=== PATIENT | female | born 1965 | race African-American/Black ===

== ENCOUNTER 2018-06-10 12:01 | Inpatient (IN) | payer MEDICAID, OTHER ==
[~2018-06-10] VITALS: Ht 162.6 cm; Wt 112.2 kg
[2018-06-10] VITALS (15 sets, daily range): BP systolic 72–194; BP diastolic 29–102
[2018-06-10] MEDS ORDERED: NICARDIPINE 50 MG in SODIUM CHLORIDE 0.9% 230 ML IV STA (12:53)
[2018-06-10 12:59] LABS: BASOPHILS % 1.4 % (0.0-2.0); EOSINOPHILS % 0.4 % (0.0-5.0); HEMATOCRIT. 40.7 % (36.0-48.0); HEMOGLOBIN. 13.9 g/dL (12.0-16.0); LYMPHOCYTES % 18.1 % (20.0-50.0); MEAN CORPUSCULAR HEMOGLOBIN 28.1 pg (28.0-32.0); MEAN CORPUSCULAR VOLUME 82.2 fL (81.0-99.0); MEAN PLATELET VOLUME 8.5 fl (7.4-10.4); MONOCYTES % 3.7 % (2.0-8.0); NEUTROPHILS % 76.4 % (40.0-76.0); PLATELET 396 x1000/uL (130-400); RED BLOOD CELL COUNT 4.95 mill/uL (4.2-5.4); RED CELL DISTRIBUTION WIDTH 15.4 % (11.6-14.6)
[2018-06-10] MEDS ORDERED: LABETALOL 5MG/ML SYR 20 MG/4 ML SYRINGE IV ONE (13:00)
[2018-06-10 13:07] LABS: CHLORIDE 106 mEq/L (98-107); INR 1.1; PARTIAL THROMBOPLASTIN TIME 24.1 sec (23.4-31.0); PROTHROMBIN TIME 10.6 sec (9.1-11.1)
[2018-06-10] MEDS ORDERED: LEVETIRACETAM 500MG PREMIX 100 ML IV ONE (13:15)
[2018-06-10] MEDS ORDERED: NICARDIPINE 40MG/200ML PREMIX 200 ML IV SCH (13:15)
[2018-06-10] MEDS ORDERED: POTASSIUM CHLORIDE 20MEQ TABLET SR PO ONE (14:45)
[2018-06-10] MEDS ORDERED: CLONIDINE 0.1MG TABLET PO PRN ×2 (16:00→22:00)
[2018-06-10] MEDS ORDERED: LORAZEPAM 2MG/ML CPJ IV PRN (22:00)
[2018-06-10] MEDS ORDERED: POTASSIUM CHLORIDE 20MEQ TABLET SR PO NR (22:00)
[2018-06-10] MEDS ORDERED: IPRATROPIUM/ALBUTEROL 0.5-3(2.5)MG/3ML NEB INH PRN (22:00)
[2018-06-10] MEDS ORDERED: ONDANSETRON HCL 4MG/2ML VIAL IV PRN (22:00)
[2018-06-10] MEDS ORDERED: ACETAMINOPHEN 325MG TABLET PO PRN (22:00)
[2018-06-10] MEDS ORDERED: DOCUSATE SODIUM 100MG CAPSULE PO PRN (22:00)
[2018-06-10] MEDS ORDERED: MAGNESIUM/ALUMINUM HYDROXIDE/SIMETHICONE 30ML UDC PO PRN (22:00)
[2018-06-10] MEDS ORDERED: HYDROCODONE/ACETAMINOPHEN 5/325MG TABLET PO PRN (22:00)
[2018-06-10] MEDS: NIFEDIPINE XL 60MG TAB PO SCH (23:02)
[2018-06-11] VITALS (37 sets, daily range): BP systolic 114–170; BP diastolic 48–128
[2018-06-11 00:07] LABS: CREATINE KINASE MB FRACTION 1.5 ng/mL (0.5-3.6)
[2018-06-11 06:04] LABS: BASOPHILS % 1.3 % (0.0-2.0); EOSINOPHILS % 1.8 % (0.0-5.0); HEMATOCRIT. 38.2 % (36.0-48.0); HEMOGLOBIN. 12.9 g/dL (12.0-16.0); LYMPHOCYTES % 24.1 % (20.0-50.0); MEAN CORPUSCULAR HEMOGLOBIN 27.9 pg (28.0-32.0); MEAN CORPUSCULAR VOLUME 82.4 fL (81.0-99.0); MEAN PLATELET VOLUME 8.7 fl (7.4-10.4); MONOCYTES % 4.7 % (2.0-8.0); NEUTROPHILS % 68.1 % (40.0-76.0); PLATELET 356 x1000/uL (130-400); RED BLOOD CELL COUNT 4.63 mill/uL (4.2-5.4); RED CELL DISTRIBUTION WIDTH 15.2 % (11.6-14.6)
[2018-06-11 06:18] LABS: CHLORIDE 107 mEq/L (98-107)
[2018-06-11 06:32] LABS: LDL CHOLESTEROL 89 mg/dL (5-100)
[2018-06-11 06:33] LABS: CREATINE KINASE 486 IU/L (26-192); HDL CHOLESTEROL 47 mg/dL (40-59)
[2018-06-11 06:35] LABS: CREATINE KINASE MB FRACTION 1.4 ng/mL (0.5-3.6)
[2018-06-11] MEDS: NIFEDIPINE XL 60MG TAB PO SCH ×2 (10:28→20:04)
[2018-06-11] MEDS: LEVETIRACETAM 500MG/5ML CUP PO SCH ×2 (10:29→20:04)
[2018-06-11] MEDS: ASPIRIN 81MG TABLET PO SCH (10:29)
[2018-06-11] MEDS: ENOXAPARIN 30MG/0.3ML SYR SUBCUT SCH ×2 (10:33→20:04)
[2018-06-11] MEDS: METFORMIN HCL 500MG TABLET PO SCH (17:48)
[2018-06-11] MEDS: CLONIDINE 0.2MG TABLET PO SCH ×2 (18:09→21:17)
[2018-06-11 20:35] LABS: ETHANOL BLOOD < 10 mg/dL
[2018-06-11 20:40] LABS: AMMONIA 49 uMol/L (<32)
[2018-06-11 20:41] LABS: T4 FREE 1.03 ng/dL (0.76-1.46)
[2018-06-11 20:54] LABS: FOLIC ACID (FOLATE) SERUM 10.2 ng/mL (>5.38)
[2018-06-11 21:01] LABS: CLARITY URINE CLOUDY (CLEAR); COLOR URINE YELLOW (YELLOW); KETONES URINE NEGATIVE (NEGATIVE); LEUKOCYTE ESTERASE URINE TRACE (NEGATIVE); NITRITE URINE NEGATIVE (NEGATIVE); OCCULT BLOOD URINE NEGATIVE (NEGATIVE); PROTEIN URINE NEGATIVE (NEGATIVE)
[2018-06-11 21:15] LABS: *AMPHETAMINES SCREEN URINE NEGATIVE (NEGATIVE); *BARBITURATES SCREEN URINE NEGATIVE (NEGATIVE); *BENZODIAZEPINES SCREEN URINE NEGATIVE (NEGATIVE); *COCAINE SCREEN URINE NEGATIVE (NEGATIVE)
[2018-06-11 21:16] LABS: CANNABINOID URINE SCREEN NEGATIVE (NEGATIVE); METHADONE URINE SCREEN NEGATIVE (NEGATIVE); OPIATES URINE SCREEN NEGATIVE (NEGATIVE); PHENCYCLIDINE URINE SCREEN NEGATIVE (NEGATIVE)
[2018-06-11] MEDS ORDERED: DEXTROSE 50% WATER 50ML SYRINGE IV PRN (23:30)
[2018-06-12] VITALS: BP 120/79
[2018-06-12] MEDS: LACTULOSE 20G/30ML UDC PO SCH ×3 (00:19→17:06)
[2018-06-12 04:00] VITALS: BP 135/78
[2018-06-12] MEDS: CLONIDINE 0.2MG TABLET PO SCH ×2 (05:44→21:19)
[2018-06-12] MEDS: BLOOD SUGAR DIAGNOSTIC STRIP TEST SCH ×4 (05:45→21:29)
[2018-06-12] MEDS: INSULIN LISPRO 100 UNITS/ML SUBCUT SCH ×4 (06:17→21:29)
[2018-06-12] MEDS: METFORMIN HCL 500MG TABLET PO SCH ×2 (07:48→17:06)
[2018-06-12 08:00] VITALS: BP 98/62
[2018-06-12 08:23] LABS: BASOPHILS % 1.5 % (0.0-2.0); EOSINOPHILS % 4.1 % (0.0-5.0); HEMATOCRIT. 38.7 % (36.0-48.0); LYMPHOCYTES % 27.1 % (20.0-50.0); MEAN CORPUSCULAR VOLUME 83.3 fL (81.0-99.0); MEAN PLATELET VOLUME 8.8 fl (7.4-10.4); MONOCYTES % 4.8 % (2.0-8.0); NEUTROPHILS % 62.5 % (40.0-76.0); PLATELET 357 x1000/uL (130-400); RED BLOOD CELL COUNT 4.65 mill/uL (4.2-5.4); RED CELL DISTRIBUTION WIDTH 15.2 % (11.6-14.6)
[2018-06-12 08:39] LABS: CHLORIDE 105 mEq/L (98-107)
[2018-06-12] MEDS: NIFEDIPINE XL 60MG TAB PO SCH ×2 (09:00→21:18)
[2018-06-12] MEDS: LEVETIRACETAM 500MG/5ML CUP PO SCH ×2 (09:08→21:18)
[2018-06-12] MEDS: ASPIRIN 81MG TABLET PO SCH (09:09)
[2018-06-12] MEDS: ENOXAPARIN 30MG/0.3ML SYR SUBCUT SCH ×2 (09:10→21:19)
[2018-06-12 12:00] VITALS: BP 107/60
[2018-06-12 16:00] VITALS: BP 115/70
[2018-06-12 20:00] VITALS: BP 128/72
[2018-06-13] VITALS: BP 117/66
[2018-06-13 04:00] VITALS: BP 117/67
[2018-06-13] MEDS: INSULIN LISPRO 100 UNITS/ML SUBCUT SCH ×4 (06:37→21:20)
[2018-06-13] MEDS: BLOOD SUGAR DIAGNOSTIC STRIP TEST SCH ×4 (06:37→21:18)
[2018-06-13 08:00] VITALS: BP 125/64
[2018-06-13] MEDS: ENOXAPARIN 30MG/0.3ML SYR SUBCUT SCH ×2 (08:52→21:18)
[2018-06-13] MEDS: LEVETIRACETAM 500MG/5ML CUP PO SCH ×2 (08:52→21:17)
[2018-06-13] MEDS: LACTULOSE 20G/30ML UDC PO SCH ×2 (08:52→18:03)
[2018-06-13] MEDS: NIFEDIPINE XL 60MG TAB PO SCH ×2 (08:53→21:17)
[2018-06-13] MEDS: ASPIRIN 81MG TABLET PO SCH (08:53)
[2018-06-13] MEDS: METFORMIN HCL 500MG TABLET PO SCH ×2 (08:53→18:03)
[2018-06-13] MEDS: CLONIDINE 0.2MG TABLET PO SCH ×2 (08:54→21:17)
[2018-06-13 12:00] VITALS: BP 121/68
[2018-06-13 12:03] LABS: BASOPHILS % 1.2 % (0.0-2.0); EOSINOPHILS % 3.7 % (0.0-5.0); HEMATOCRIT. 37.6 % (36.0-48.0); HEMOGLOBIN. 12.5 g/dL (12.0-16.0); LYMPHOCYTES % 26.5 % (20.0-50.0); MEAN CORPUSCULAR HEMOGLOBIN 27.8 pg (28.0-32.0); MEAN CORPUSCULAR VOLUME 83.4 fL (81.0-99.0); MEAN PLATELET VOLUME 8.7 fl (7.4-10.4); MONOCYTES % 5.1 % (2.0-8.0); NEUTROPHILS % 63.5 % (40.0-76.0); PLATELET 353 x1000/uL (130-400); RED BLOOD CELL COUNT 4.51 mill/uL (4.2-5.4); RED CELL DISTRIBUTION WIDTH 15.3 % (11.6-14.6)
[2018-06-13 12:13] LABS: CHLORIDE 105 mEq/L (98-107)
[2018-06-13 16:00] VITALS: BP 115/66
[2018-06-13 20:00] VITALS: BP 158/80
[2018-06-14] VITALS (8 sets, daily range): BP systolic 115–171; BP diastolic 60–93
[2018-06-14] MEDS: BLOOD SUGAR DIAGNOSTIC STRIP TEST SCH ×3 (06:29→16:45)
[2018-06-14] MEDS: INSULIN LISPRO 100 UNITS/ML SUBCUT SCH ×3 (06:31→17:15)
[2018-06-14 06:57] LABS: BASOPHILS % 0.2 % (0.0-2.0); EOSINOPHILS % 4.1 % (0.0-5.0); HEMOGLOBIN. 13.5 g/dL (12.0-16.0); LYMPHOCYTES % 28.5 % (20.0-50.0); MEAN CORPUSCULAR VOLUME 83.1 fL (81.0-99.0); MEAN PLATELET VOLUME 8.3 fl (7.4-10.4); MONOCYTES % 4.7 % (2.0-8.0); NEUTROPHILS % 62.5 % (40.0-76.0); PLATELET 402 x1000/uL (130-400); RED BLOOD CELL COUNT 4.81 mill/uL (4.2-5.4); RED CELL DISTRIBUTION WIDTH 15.3 % (11.6-14.6)
[2018-06-14 07:11] LABS: CHLORIDE 107 mEq/L (98-107)
[2018-06-14 07:16] LABS: PHOSPHORUS 3.7 mg/dL (2.5-4.9)
[2018-06-14] MEDS: METFORMIN HCL 500MG TABLET PO SCH ×2 (09:01→17:52)
[2018-06-14] MEDS: LEVETIRACETAM 500MG/5ML CUP PO SCH (09:01)
[2018-06-14] MEDS: ASPIRIN 81MG TABLET PO SCH (09:01)
[2018-06-14] MEDS: LACTULOSE 20G/30ML UDC PO SCH ×2 (09:01→17:52)
[2018-06-14] MEDS: NIFEDIPINE XL 60MG TAB PO SCH (09:02)
[2018-06-14] MEDS: CLONIDINE 0.2MG TABLET PO SCH (09:02)
[2018-06-14] MEDS: ENOXAPARIN 30MG/0.3ML SYR SUBCUT SCH (09:03)
== END 2018-06-14 20:40 | disposition home or self-care (01) | DRG 199 ==
LOC: ER 12:01 → MICUNO 14:05 → EDBEDREQ 14:06 → EDBEDREQTM 14:06 → ENRESERV 18:57 → 5WST 06-11 16:12
PROVIDERS: ADMIT Internal Medicine; ATTEND Internal Medicine
DX: I16.0 Hypertensive urgency (principal); E66.01 Morbid (severe) obesity due to excess calories; I11.9 Hypertensive heart disease without heart failure; Z68.41 Body mass index [BMI] 40.0-44.9, adult; I16.1 Hypertensive emergency; G40.909 Epilepsy, unspecified, not intractable, without status epilepticus; E78.5 Hyperlipidemia, unspecified; E87.6 Hypokalemia; E11.9 Type 2 diabetes mellitus without complications; E78.00 Pure hypercholesterolemia, unspecified; Z91.14 Patient's other noncompliance with medication regimen; I49.3 Ventricular premature depolarization; M19.90 Unspecified osteoarthritis, unspecified site; F12.90 Cannabis use, unspecified, uncomplicated; Z98.891 History of uterine scar from previous surgery
CPT/HCPCS: 36415; 70450; 70551; 71045; 72125; 80048; 80053; 80061; 80305; 81003; 82140; 82550; 82553; 82607; 82746; 82962; 83036; 83735; 83880; 84100; 84439; 84443; 84481; 84484; 85025; 85610; 85730; 93005; 93306; 93880; 93970; 96365; 96375; 97162; 99291; G0482; J1650; J1815; J1953; J3490; J7050